=== PATIENT | male | born 2000 | race Caucasian/White ===

== ENCOUNTER 2024-08-03 14:52 | Emergency (ER) | payer MEDICAID, SELFPAY ==
[2024-08-03 15:06] VITALS: BP 137/81; PULSE 108; RESP 16; TEMP 36.8; O2SAT 98; BMI 19.6
--- NOTE | 2024-08-03 15:18 | ED_ITS ---
HPI - Neck Pain/Injury General Chief Complaint: Neck Pain/Injury Stated Complaint: pressure back of head, back pain, abd pain Time Seen by Provider: 08/03/24 15:18 Source: patient Mode of arrival: ambulatory Limitations: no limitations History of Present Illness ED Provider: Leigh Tabor PA-C HPI Narrative: Neck pain x 2 days patient follow up with neck pain 2 days ago worse with cervi corky rotation. About 5 years ago he was told that he suspiciously might have had a cervical spine fracture but if this is not visible on imaging. IT has been a while since he has been to physical therapy or had any issues with his neck but it is feels stiff with him today. He denies any new falls or trauma no paresthesias or weakness of his limbs. He has tried NSAID to no relief. He is not interested in doing physical therapy at this time. MD complaint: neck pain Related Data Previous Rx's ?Medication ?Instructions ?Recorded lidocaine 5 % topical patch 1 patch topical DAILY #30 ea 08/03/24 Allergies Allergy/AdvReac Type Severity Reaction Status Date / Time No Known Allergies Allergy Verified 08/03/24 15:09 Review of Systems Review of Systems: Yes all other systems are reviewed and are negative [facility] Past Medical History Attestation statement: The following information was validated with the patient. Source: old records reviewed, obtained from family and nursing notes reviewed Social History Social History Advance Directives: No Advance Directives Information Provided: No Do you have a plan to hurt others: No Plan Physical Exam Vital Signs: Vital Signs: Last Vital Signs Temp 98.3 F 08/03/24 15:39 Pulse 108 H 08/03/24 15:39 Resp 16 08/03/24 15:39 BP 137/81 08/03/24 15:39 Pulse Ox 98 08/03/24 15:39 O2 Del Method Room Air 08/03/24 15:39 BMI result Body Mass Index 19.6 Const: Other: Patient is able to rotate his cervical spine in at least 45 to 50 degrees in each direction however it reproduces pain on his bilateral sternocleidomastoid and upper trapezius muscles pointing to the each of them, There is no midline tenderness step-offs or deformities of entire spine. No nuchal rigidity noted able to flex and extend without difficulty.No rashes flying i instructor strength is 4+ throughout. Negative Spurling test bilaterally, Sensation fully intact of upper extremities no Deficit with range of motion of the bilateral upper limbs General: cooperative, healthy appearing, comfortable, no acute distress, well developed, alert, awake and Physically active Nutritional Appearance: average body habitus and well nourished Orientation/consciousness: patient oriented x3 Limitations: no limitations Neck: Neck: Yes normal visual inspection, Yes no lymphadenopathy, Yes no meningeal signs, Yes trachea midline and Yes supple Lymphatic: no lymphadenopathy noted Back/Spine/Pelvis: Cervical Spine: loss of normal cervical lordosis, cervical muscular tenderness, pain with cervical ROM, cervical spasm and cervical ROM abnormal Thoracic/Lumbar Spine: thoracic and lumbar spine normal to inspection Neuro: General: patient oriented x3 and no meningeal signs Medical Decision Making Medical Decision Making MDM Narrative: Patient has a neck strain and will be discharged home. Patient has currently been stabilize in the without evidence of neurovascular compromise. Patient was negative by NEXUS criteria and therefore no imaging was performed/ordered. Patient?s symptoms not typical for other emergent conditions such as arterial dissection, osteomyelitis, epidural abscess, c-spine fracture, other spinal emergencies. Patient will be discharged with strict return precautions and follow up with primary MD within 24-48 hours for further evaluation. Differential Diagnosis Differential Diagnoses: The differential diagnosis associated with the presentation includes see MDM Admission/Observation Consideration of admission/observation: Escalation of care including admission/observation considered Had patient's workup and presentation warranted any further care hospital mission would have been warranted Independent Historian Clinical information obtained from an independent historian. History obtained from or confirmed by: Friend External Record Review External record reviewed: Prior outpatient radiology X-ray of C-spine outpatient reviewed no acute fractures Tests considered The following testing was considered but not selected: Would have considered repeat CT of the neck/cervical spine had patient's presentation warranted it-He is negative via Nexus criteria For cervical spine fracture Prescription Management I considered prescription management with: Pain Medication Chronic Conditions Patient?s care impacted by: Other (Degenerative joint disease) Social Determinants Patient?s care significantly limited by Social Determinants of Health including: Other Social Determinant of Health Discharge Plan Discharge Clinical Impression: Strain of neck muscle, Neck muscle spasm Patient Disposition: Home, Self-Care Instructions: Cervical Sprain (ED), Muscle Spasm (ED) Additional Instructions: You were evaluated for your neck pain. Your history and physical exam is most consistent with a cervical/trapezius muscle strain. Rest: Avoid sudden movements of your neck, heavy lifting, twisting and turning.?? Use ice to the area for the first 24-48 hours, then you can use moist heat to the area (use a warm moist cloth or heating pad) for 20 minutes at a time, 3-4 times a day.? Gentle massage to tight muscles can help.? Using a sportscream like [employer] or [employer] can also help. Use Motrin/Advil (ibuprofen) 600 mg three times a day for the next 5 days, then every 6 to 8 hours? as needed for pain. Take ibuprofen with food to avoid stomach irritation.? In addition, You can use Tylenol (acetaminophen) 650 mg every 6 hrs as needed for pain.? Do not take more than 3000 mg in one day! Follow up with your PCP in the next few days to be re-evaluated.?? Go directly to the closest ER if you develop a severe headache, numbness or weakness in your arms or legs, dizziness, change in your vision, nausea, vomiting, or any other new, concerning symptoms. Try these at home: PERFORM THE FOLLOWING?STRETCHES, PLEASE use [email or web address] THE NAME OF THE THEM? SEATED GENTLE UPPER TRAPEZIUS 2X A DAY 3 SETS HOLD FOR 30 SECONDS GENTLE LEVATOR SCAPULAE?STRETCH 2X A DAY, 3 SETS HOLD FOR 30 SECONDS SUPINE CHIN TUCK 1X A DAY 30X SEATED SCAPULAR RETRACTION 1X D DAY, 30 X OPEN BOOK CHEST?STRETCH?ON TOWEL ROLL 2X A DAY 3 SETS HOLD FOR 30 SECONDS SIDELYING THORACIC LUMBAR ROTATION 2X A DAY 30 X Prescriptions: New lidocaine 5 % adhesive patch,medicated 1 patch topical DAILY Qty: 30 0RF Rx Instructions: leave on most painful area for up to 12 hrs Referrals: [facility] [Provider Group, Orthopedics] - 1 week Referral Note: spasm of neck Interventions: ED Discharge Assessment Last Done: 08/03/24 15:39 Discharge Date/Time: 08/03/24 15:40 Print Language: Icelandic
[2024-08-03 15:39] VITALS: BP 137/81; PULSE 108; RESP 16; TEMP 36.8; O2SAT 98
== END 2024-08-03 15:40 | disposition home or self-care (01) ==
PROVIDERS: Emergency Provider Emergency Medicine
DX: S16.1XXA Strain of muscle, fascia and tendon at neck level, initial encounter (principal); X58.XXXA Exposure to other specified factors, initial encounter; M62.838 Other muscle spasm; M54.2 Cervicalgia; Y93.9 Activity, unspecified; Y92.9 Unspecified place or not applicable; Y99.9 Unspecified external cause status
CPT/HCPCS: 99282; 99283